=== PATIENT | female | born 1955 | race Caucasian/White ===

== ENCOUNTER 2020-05-19 23:01 | Emergency (ER) | payer OTHER, SELFPAY ==
--- NOTE | ~2020-05-19 | XR_ITS ---
XR foot LT min 3V DATE: 05/19/2020 23:38 INDICATION: Plantar calcaneal pain. Osteomyelitis. TECHNIQUE: 4 views COMPARISON: None FINDINGS: There is moderate plantar and mild posterior calcaneal enthesopathy. No fracture, dislocation, periosteal reaction or bone destruction is detected. Osteophytic changes are noted at some of the interphalangeal joints. IMPRESSION: Calcaneal enthesopathy Reviewed, dictated and finalized at location A. IMPRESSION: Calcaneal enthesopathy
[2020-05-19 23:06] VITALS: BP 195/78; PULSE 79; RESP 18; TEMP 36.6; O2SAT 98
--- NOTE | 2020-05-19 23:25 | ED.GENADULT ---
HPI - General Adult General Chief complaint: Extremity Problem,Nontraumatic Stated complaint: my left foot has a knot on the bottom Time Seen by Provider: 05/19/20 23:18 Source: patient Mode of arrival: ambulatory Limitations: no limitations History of Present Illness HPI narrative: 64 years old white female presents with pain at the bottom of the left foot, noticed 2 days ago. Patient denies any injury. Patient denies any fever, chills, nausea, vomiting. History of diabetes, hypertension, GERD. Related Data Allergies Allergy/AdvReac Type Severity Reaction Status Date / Time No Known Allergies Allergy Unverified 02/01/15 15:52 Review of Systems Review of Systems: Narrative: CONSTITUTIONAL: Denies fever, chills, or sweats. EYES: Denies visual changes, redness, or discharge. ENT: Denies rhinorrhea, congestion, sore throat, or otalgia. CARDIOVASCULAR: Denies chest pain, palpitations, or edema. RESPIRATORY: Denies cough or dyspnea. GASTROINTESTINAL: Denies abdominal pain, nausea, vomiting, or diarrhea. GENITOURINARY: Denies dysuria or hematuria. SKIN: Denies rash or itching. MUSCULOSKELETAL: Denies back pain, joint pain, or myalgia. NEUROLOGIC: Denies headache, numbness, or weakness. PSYCHIATRIC: Denies anxiety or depression. [facility] Past Medical History Medical History (Updated 05/20/20 @ 00:53 by Elliot Slameron MD) Diabetes mellitus, new onset GERD (gastroesophageal reflux disease) Hypertension Family History Family History (Updated 02/08/19 @ 10:59 by DOCTOR UNKNOWN) Father Diabetes mellitus Family history of hypercholesterolemia Hypertension Mother Cerebrovascular accident Social History Social History Smoking status: Never smoker Alcohol intake: current Exam Narrative: Exam Narrative: General appearance: Well-developed, well-nourished Skin: Normal color. Right foot showed a callus on the bottom of the foot anteriorly without any signs of infection. Left foot showed the same, with abscess formation on top of the callus surrounded by erythema and diffuse tenderness Head: Normocephalic, nontraumatic Eyes: Clear conjunctiva ENT: Oropharynx normal, ears normal, nose normal Neck: Supple, nontender Chest and respiratory: Airway patent, no respiratory distress, no accessory muscle use Heart: Regular rate/rhythm Abdomen: Soft, nontender, no organomegaly, quiet bowel sounds Vascular: Normal peripheral pulses, normal capillary refill. Musculoskeletal: Normal range of motion, nontender back Neurologic: Alert and oriented ?3, BELL PERSON is normal as tested, no gross motor deficit Course Course Emergency Course: Improving Vital Signs Vital signs: Vital Signs Temperature 36.6 C 05/19/20 23:06 Pulse Rate 79 05/19/20 23:06 Respiratory Rate 18 05/19/20 23:06 Blood Pressure 195/78 H 05/19/20 23:06 Pulse Oximetry 98 05/19/20 23:06 Temperature 36.6 C 05/19/20 23:06 Pulse Rate 79 05/19/20 23:06 Respiratory Rate 18 05/19/20 23:06 Blood Pressure 195/78 H 05/19/20 23:06 Pulse Oximetry 98 05/19/20 23:06 Procedures Abscess I/D foot: Date of Incision: 05/20/20 Time of Incision: 00:49 Side (if applicable): left Local Anesthetic: lidocaine 1% and with epi Amount of anesthesia used (mL): 2 Technique: incised with #11 blade Amount of fluid expressed (mL): 4 Irrigation: Yes Packing used?: iodoform I&D Results: Pus Abcess I&D Additional Comments: Culture was obtained. Medical Decision Making MDM Narrative Medical decision making narrative: Left foot abscess, required incision and drainage. Culture obtained. Vancomycin was given p
[2020-05-19 23:49] LABS: Basophils Absolute Auto 0.1 K/mm3 (0.0-0.1); Basophils Percent Auto 1.2 % (0.2-1.2); Eosinophils Absolute Auto 0.3 K/mm3 (0-0.3); Eosinophils Percent Auto 2.7 % (0-4.4); Hematocrit 34.8 % (37.0-47.0); Hemoglobin 11.6 g/dL (12.0-15.0); Lymphocytes Absolute Auto 3.22 K/mm3 (0.9-3.2); Lymphocytes Percent Auto 30.9 % (18.3-44.2); Mean Corpuscular HGB Conc 33.3 g/dl (32-36); Mean Corpuscular Hemoglobin 29.6 pg (26-34); Mean Corpuscular Volume 88.8 fl (80-100); Mean Platelet Volume 9.7 fl (7.4-10.4); Monocytes Absolute Auto 0.8 K/mm3 (0.1-0.6); Monocytes Percent Auto 7.6 % (2.6-8.5); Neutrophils Absolute Auto 5.9 K/mm3 (1.3-6.7); Neutrophils Percent Auto 56.6 % (45.5-73.1); Platelet Count Result 380 k/mm3 (150-375); Red Blood Count 3.92 M/mm3 (4.2-5.4); Red Cell Distribution Width 13.3 % (11.5-14.5); White Blood Count 10.4 K/mm3 (4.5-10.0)
[2020-05-20 00:03] LABS: Alanine Aminotransferase 56 U/L (4-35); Albumin Level 4.2 g/dL (3.5-5.1); Alkaline Phosphatase 112 U/L (38-126); Anion Gap 10 mmol/L (8-16); Aspartate Amino Transferase 78 U/L (14-36); Bilirubin,Total 0.3 mg/dL (0.2-1.3); Blood Urea Nitrogen 13 mg/dL (7-17); Calcium 9.2 mg/dL (8.4-10.2); Carbon Dioxide 26 mmol/L (22-30); Chloride 101 mmol/L (98-107); Estimated CRCL calculation 79 ml/min; Estimated Glomerular Filt Rate > 60; Glucose 248 mg/dL (65-105); Potassium 3.9 mmol/L (3.4-5.0); Sodium 137 mmol/L (137-145)
[2020-05-20 00:33] VITALS: BP 148/89; PULSE 82; RESP 16; O2SAT 98
[2020-05-20 02:17] VITALS: BP 149/86; PULSE 82; RESP 16; TEMP 36.6; O2SAT 98
== END 2020-05-20 02:18 | disposition home or self-care (01) ==
PROVIDERS: Emergency Provider Emergency Medicine; PCP Internal Medicine
DX: L02.612 Cutaneous abscess of left foot (principal); E11.9 Type 2 diabetes mellitus without complications; K21.9 Gastro-esophageal reflux disease without esophagitis; I10 Essential (primary) hypertension
CPT/HCPCS: 10061; 36415; 73630; 80053; 85025; 87070; 87147; 87186; 87205; 96365; 99284; J3370